=== PATIENT | male | born 1975 | race Caucasian/White ===

== ENCOUNTER → 2024-01-07 | Outpatient (CLI) | payer BC ==
--- NOTE | 2024-01-07 13:52 | US ---
EXAMINATION TYPE: US abdomen complete DATE OF EXAM: 01/07/2024 COMPARISON: NONE CLINICAL INDICATION: Male, 48 years old with history of R10.11 RUQ PAIN; Abdomen pain TECHNIQUE: Multiple sonographic images of the abdomen are obtained. FINDINGS: EXAM MEASUREMENTS: Liver Length: 17.9 cm Gallbladder Wall: 0.2 cm CBD: 0.3 cm Spleen: 12.1 cm Right Kidney: 11.3 x 5.4 x 6.3 cm Left Kidney: 11.4 x 6.2 x 6.1 cm Pancreas: visualized portions wnl, limited by overlying midline bowel gas Liver: measures in upper limits of normal , mild echogenic parenchyma. No focal lesion. Gallbladder: wnl Evidence for sonographic Martinez's sign: no CBD: visualized portions wnl, limited by overlying bowel gas Spleen: visualized portions wnl, limited by overlying bowel gas Right Kidney: wnl Left Kidney: wnl Upper IVC: wnl Abd Aorta: visualized portions wnl, limited by overlying midline bowel gas IMPRESSION: 1. There is borderline hepatomegaly at 17.9 cm. Suspect underlying mild hepatic steatosis. Correlate with LFTs, lipid profile, and patient risk factors. 2. No gallstones or biliary ductal dilatation.
[2024-01-07 18:53] LABS: Basophils # (A) 0.02 X 10*3/uL (0.00-0.10); Basophils % (A) 0.3 %; Eosinophils # (A) 0.08 X 10*3/uL (0.04-0.35); Eosinophils % (A) 1.1 %; HCT 44.8 % (39.6-50.0); Lymphocytes # (A) 1.61 X 10*3/uL (0.90-5.00); Lymphocytes % (A) 23.1 %; MCH 31.4 pg (27.0-32.0); MCHC 33.5 g/dL (32.0-37.0); MCV 93.9 FL (80.0-97.0); Mean Platelet Volume 10.5 FL (9.5-12.2); Monocytes # (A) 0.46 X 10*3/uL (0.20-1.00); Monocytes % (A) 6.6 %; NRBC Per 100 WBC 0 X 10*3/uL (0.00-0.01); Neutrophils # (A) 4.78 X 10*3/uL (1.80-7.70); Neutrophils % (A) 68.5 %; Platelet Count 229 X 10*3/uL (140-440); RBC 4.77 X 10*6/uL (4.40-5.60); RDW 11.9 % (11.5-14.5); WBC 6.98 X 10*3/uL (4.50-10.00)
[2024-01-07 19:03] LABS: ALT 25 U/L (10-49); AST 19 U/L (14-35); Albumin 4.2 g/dL (3.8-4.9); Alkaline Phosphatase 66 U/L (41-126); Amylase 32 U/L (23-121); Blood Urea Nitrogen 10.6 mg/dL (9.0-27.0); Calcium 9.4 mg/dL (8.7-10.3); Chloride 106 mmol/L (96-109); Globulin 2.1 g/dL (1.6-3.3); Glucose 112 mg/dL (70-110); Lipase 17 U/L (14-60); Potassium 4.4 mmol/L (3.5-5.5); Sodium 143 mmol/L (135-145); Total Bilirubin 0.6 mg/dL (0.3-1.2); Total Protein 6.3 g/dL (6.2-8.2)
== END | disposition home or self-care (01) ==
LOC: RADUSWWP 12:31
PROVIDERS: ATTEND Family Medicine
DX: R16.0 Hepatomegaly, not elsewhere classified (principal)
CPT/HCPCS: 36415; 76700; 80053; 82150; 83690; 85025